=== PATIENT | male | born 1985 | race Caucasian/White ===

== ENCOUNTER → 2019-09-18 | Outpatient (CLI) | payer BC ==
--- NOTE | 2019-09-18 14:51 | US ---
EXAMINATION TYPE: US kidneys/renal and bladder DATE OF EXAM: 09/18/2019 COMPARISON: NONE CLINICAL HISTORY: R79.89 ABN FINDING BLOOD CHEMISTRY. Elevated creatinine, patient states he was told he might only have one kidney. EXAM MEASUREMENTS: Right Kidney: 14.3 x 5.7 x 6.1 cm Right Kidney: enlarged, prominent renal pelvis Left Kidney: not seen Bladder: wnl Bilateral Jets seen: right jet seen, left jet not seen There is no evidence for hydronephrosis at this point in time. No nephrolithiasis is seen. No bonnie s are identified. The urinary bladder is anechoic. IMPRESSION: Pelviectasis without tj hydronephrosis. Only a right kidney is seen in the left kidney could be congenitally or surgically absent.
--- NOTE | 2019-09-18 15:06 | US ---
EXAMINATION TYPE: US scrotum with doppler. Grayscale and color Doppler Duplex imaging performed of t radha scrotum. DATE OF EXAM: 09/18/2019 COMPARISON: NONE CLINICAL HISTORY: R79.89 ABN FINDINGS BLOOD CHEMISTRY. Left testicular pain, history of hernia repair EXAM MEASUREMENTS: TESTICLES: Right Testicle: 4.7 x 2.3 x 3.0 cm Left Testicle: 3.8 x 2.0 x 2.9 cm EPIDIDYMIS HEAD: Right Epididymis: 1.1 x 1.0 x 1.3 cm Left Epididymis: 1.3 x 1.1 x 1.4 cm Doppler performed to assess for testicular vascularity; good bilateral color flow and waveforms are s een. There is no evidence of testicular torsion. Presence of hydroceles: right 2.0cm, left 1.7cm Presence of varicoceles: prominent vessels posterior to left testicle IMPRESSION: Trace right hydroceles and small left varicocele. No recurrent hernia seen on today's exa m.
== END | disposition home or self-care (01) ==
LOC: RADUSWWP 13:35
PROVIDERS: ATTEND Family Medicine
DX: R79.89 Other specified abnormal findings of blood chemistry (principal)
CPT/HCPCS: 76770; 76870; 93975